=== PATIENT | female | born 1980 | race Caucasian/White ===

== ENCOUNTER 2017-03-16 13:23 | Inpatient (IN) | payer SELFPAY ==
[~2017-03-16] VITALS: Ht 165.1 cm; Wt 85.4 kg
--- NOTE | 2017-03-16 13:33 | NUR ---
PT SENT TO LOBBY TO WAIT FOR AVAILABLE BED. VITALS STABLE AND NO DISTRESS NOTED
--- NOTE | 2017-03-16 15:36 | NUR ---
DR. DILL PERFORMED MSE; PT IN ED WITH C/O GENERALIZED ABD PAIN AND GAS PAINS X4 DAYS, PER PT STARTED ON CLINDAMYCIN 4 DAYS AGO FOR A DENTAL INFECTION AND REPORTS NOW HAVING GAS PAINS AND ALL OVER "BONE PAIN", PER PT SHE STOPPED TAKING THE CLINDA DUE TO SIDE EFFECTS; PT HAS HX OF GASTRIC BYPASS AND REPORTS FREQUENT ISSUES WITH GAS BUT REPORTS THEY USUALLY SUBSIDE WITHIN A FEW HOURS, PT IS ANXIOUS, AAO4, NO ACUTE DISTRESS
[2017-03-16 15:52] LABS: microscopic required? YES; urine erythrocyte 2+ (NEGATIVE)
[2017-03-16 15:53] LABS: BASOPHIL % 0.2 % (0-2); PLATELET COUNT 227 x10^3mcL (130-400); RED CELL DISTRIBUTION WIDTH 12.6 % (11.5-14.5)
--- NOTE | 2017-03-16 15:59 | NUR ---
PT REFUSED ATIVAN AND ZOFRAN; PT IS ANXIOUS AND REPORTS READING A LOT ON THE INTERNET ABOUT CLINDAMYCIN, PT VOICES CONCERN ABOUT HAVING CANCER AND STARTS CRYING, ASKED PT WHY SHE THINKS SHE HAS CANCER AND STATES THAT HER MOM HAD LEUKEMIA; ENCOURAGED PT TO WAIT FOR RESULTS OF TESTING AND NOT THINK ABOUT THE WORST POSSIBLE OUTCOMES
[2017-03-16 16:01] LABS: CALCIUM 8.5 mg/dL (8.5-10.1); CARBON DIOXIDE 27.4 mmol/L (21-32); CHLORIDE SERUM 105 mmol/L (98-107); CREATININE SERUM 0.7 mg/dL (0.6-1.0); GFR1 > 60 mL/min; GLUCOSE SERUM 102 mg/dL (74-106); SODIUM SERUM 143 mmol/L (136-145)
[2017-03-16 16:05] LABS: ALBUMIN 3.5 g/dL (3.4-5.0); ALKALINE PHOSPHATASE 89 U/L (46-116); ALT/SGPT 48 U/L (14-59); AMYLASE 70 U/L (25-115); AST/SGOT 42 U/L (15-37); BILIRUBIN TOTAL 0.68 mg/dL (0.20-1.00); LIPASE 127 IU/L (73-393)
--- NOTE | 2017-03-16 17:54 | NUR ---
PT OFF UNIT TO CT
--- NOTE | 2017-03-16 19:12 | NUR ---
REPORT TO NICOLLE AGUILERA TO ASSUME CARE OF PT
--- NOTE | 2017-03-16 19:35 | NUR ---
REPORT GIVEN TO AMBER AGUILERA.
[2017-03-16 19:42] LABS: CHOLESTEROL/HDL RATIO 1.9
[2017-03-16 19:44] LABS: T3 TOTAL 0.99 ng/mL
[2017-03-16 19:47] LABS: FREE T4 1.23 ng/dL (0.76-1.46); FREE THYROXINE INDEX 2.9 ug/dL (1.4-4.5); T4(THYROXINE) 8.6 ug/dL (4.7-13.3)
[2017-03-16 20:20] VITALS: BP 142/82
--- NOTE | 2017-03-16 20:23 | NUR ---
RECEIVED PT FROM ED VIA NING. ORIENTED PT TO ROOM AND SURROUNDINGS. IV NOTED TO RAC PATENT AND INTACT. TELE 5 PLACED ON PT READING NSR. INSTRUCTED PT ON THE USE OF CALL LIGHT FOR ASSISTANCE. [facility]
[2017-03-16 20:25] VITALS: BP 142/82
--- NOTE | 2017-03-16 20:25 | NUR ---
RECEIVED REPORT FROM ED AND RESOURCE RN SURU. PATIENT C/O 03/15 ABD PAIN. MEDICATED WITH MORPHINE IVP PER DOCTOR'S PRN ORDER. BED IN LOWEST POSITION. CALL LIGHT WITHIN REACH. WILL CONTINUE TO MONITOR.
--- NOTE | 2017-03-16 22:14 | NUR ---
PER DR VILLALPANDO PATIENT WOULD LIKE TO TALK TO SURGEON IN THE MORNING BEFORE SIGNING CONSENT.
--- NOTE | 2017-03-17 00:08 | NUR ---
PATIENT CALLED STATING SHE FELT ITCHY, MOUTH WAS DRY, THROAT WAS SWELLING UP AND SHE COULDN'T BREATHE. IVPB ZOSYN WAS PUT ON HOLD. NOTICED SOME FACIAL REDNESS. NOTIFIED DR VILLALPANDO AND CHARGE NURSE JAY. PATIENT WAS PUT ON 2L O2 VIA NASAL CANNULA. PATIENT WAS ABLE TO CONTINUE TO SPEAK IN FULL SENTENCES. BENADRYL, CLARITAN, SOLUMEDEROL, AND PEPCID GIVEN PER DOCTOR'S ORDER. PATIENT DENIES SOB AT THIS TIME. NO DISTRESS NOTED. WILL CONITNUE TO MONITOR.
--- NOTE | 2017-03-17 00:45 | NUR ---
PATIENT REQUESTED PAIN MEDICATION. AT THIS TIME WENT INTO THE ROOM AND PATIENT IS SLEEPING WITH NO C/O PAIN. WILL MEDICATE AT A LATER TIME WHEN PATIENT REQUESTS AGAIN.
--- NOTE | 2017-03-17 00:55 | NUR ---
PATIENT FOUND LAYING IN OTHER BED. LET PATIENT'S KNOW PER POLICY HE IS NOT ABLE TO SLEEP IN THE BED. PATIENT THEN STATED "WHATS WRONG WITH HIM LAYING THERE JUST CHARGE IT TO OUR ROOM SERVICE". PATIENT'S DID GET OFF THE BED AFTERWARDS. NOTIFIED CHARGE NURSE.
--- NOTE | 2017-03-17 01:10 | NUR ---
RECLINER CHAIR WAS PROVIDED TO PATIENT'S .
--- NOTE | 2017-03-17 05:06 | NUR ---
PATIENT RESTED IN INTERVALS THROUGHOUT THE NIGHT. MEDICATED FOR PAIN WITH TORADOL IVP X 3, MORPHINE IVP X 1, AND DILAUDID IVP X 1 PER DOCTOR'S PRN ORDER. PAIN MANAGED THROUGHOUT THE NIGHT. SAFETY AND COMFORT MEASURES MAINTAINED. BED IN LOWEST POSITION. CALL LIGHT WITHIN REACH. WILL CONTINUE TO MONITOR AND ENDORSE TO NEXT SHIFT NURSE.
[2017-03-17 05:31] VITALS: BP 140/68
[2017-03-17 06:22] LABS: CALCIUM 8.2 mg/dL (8.5-10.1); CARBON DIOXIDE 26.4 mmol/L (21-32); CHLORIDE SERUM 107 mmol/L (98-107); CREATININE SERUM 0.7 mg/dL (0.6-1.0); GFR1 > 60 mL/min; GLUCOSE SERUM 168 mg/dL (74-106); POTASSIUM SERUM 4.6 mmol/L (3.5-5.1); SODIUM SERUM 143 mmol/L (136-145)
[2017-03-17 06:26] LABS: PLATELET COUNT 203 x10^3mcL (130-400); RED CELL DISTRIBUTION WIDTH 12.4 % (11.5-14.5)
[2017-03-17 06:36] LABS: BASOPHIL % 0 % (0-2)
--- NOTE | 2017-03-17 07:10 | NUR ---
RECEIVED REPORT FROM CRISTI AGUILERA BLAST FURNACE BLOWER AT BEDSIDE. PT ANXIOUS RE:SURGERY. PT NPO FOR POSSIBLE SURGERY. TEMP 98.4. TELE #5 SINUS RHYTHM. RESP 18 EVEN. BREATH SOUNDS CLEAR. NO COUGH OR SOB. PULSE OX 97% RA. ABD ROUNDED BUT SOFT, BOWEL TONES PRESENT. DENIES PAIN AT THIS TIME. LAST MED WITH TORADOL 30MG IVP AT 0455 WITH GOOD EFFECT. VOIDING QS. NO EDEMA, PULSES PRESENT. SCD IN PLACE. IV PATENT RAC INFUSING NORMAL SALINE 100CC/HR. SIDE RAILS UP X2, CALL LIGHT IN REACH. DR LAYNE IN TO SPEAK WITH PT AND . DISCUSSED SURGERY FOR LAPAROSCOPIC CHOLECYSTECTOMY. PT HAS HX OF GASTRIC BYPASS IN 2014. DISCUSSED IF UNABLE TO PERFORM LAPAROSCOPICALLY THEN WILL NEED TO OPEN FOR SURGERY. PT VERBALIZED UNDERSTANDING. QUESTIONS ANSWERED. PT IN AGREEMENT FOR SURGERY. ALLERGY BAND PLACED FOR ZOSYN AND CLINDAMYCIN.
--- NOTE | 2017-03-17 07:50 | NUR ---
AT BEDSIDE. PT ANXIOUS RE:SURGERY BUT AGREEABLE TO PROCEED WITH SURGERY AT THIS TIME. UP TO BATHROOM FOR ALAN WIPE. IV CONVERTED TO SALINE LOCK. PT ABLE TO AMBULATE TO [facility]. [place] IDENTIFIED. PT TEARFUL AND ANXIOUS. PT TAKEN DOWN TO SURGERY AT THIS TIME.
[2017-03-17 10:50] VITALS: BP 104/58
--- NOTE | 2017-03-17 10:50 | NUR ---
RECEIVED PT BACK FROM SURGERY VIA GURNEY. ABLE TO SLIDE OVER TO BED INDEPENDANTLY. MOVES WELL. DENIES PAIN. STATES "FEELS GOOD." TELE MONITOR IN PLACE SINUS RHYTHM. RESP UNLABORED. PULSE OX 94%. OXYGEN 2L NC IN PLACE. ABD SOFT, DERMABOND IN PLACE TO 4 INCISIONS. NO DRAINAGE NOTED. HAS NOT VOIDED. INSTRUCTED TO CALL NURSE WHEN NEEDS TO GET OOB. VERBALIZED UNDERSTANDING. IVF RESUMED NORMAL SALINE 100CC/HR. ICE CHIPS PROVIDED. TO HAVE CLEAR LIQ LUNCH. AT BEDSIDE. SIDE RAILS UP X2. CALL LIGHT IN REACH.
--- NOTE | 2017-03-17 12:45 | NUR ---
PT AWAKE AND ALERT. SITTING ON SIDE OF BED. STATES "FEELS FINE." DENIES PAIN. STARTED ON CLEAR LIQUID DIET. TOLERATES WELL. NO C/O NAUSEA. IV CONTINUES PATENT. HAS NOT VOIDED YET. OFFERS NO NEED TO GO TO BATHROOM. INSTRUCTED TO CALL FOR ASSISTANCE.
[2017-03-17 13:26] VITALS: BP 97/60
--- NOTE | 2017-03-17 14:45 | NUR ---
PT AWAKE. REPORTS "STARTING TO HAVE A LITTLE BURNING ON MY INCISION ON THE RIGHT SIDE. CAN I HAVE SOME PAIN MEDICINE?" MED WITH TORADOL 30MG IV ORDERED.
--- NOTE | 2017-03-17 15:10 | NUR ---
REPORTS "FEELING BETTER, PAIN DOWN TO 6/10." DENIES THROAT SWELLING, HIVES OR ITCHING FROM MEDICATION. INSTRUCTED WITH USE OF INCENTIVE SPIROMETER TO USE HOURLY TEN BREATHS. GOOD RETURN DEMO. CALL LIGHT IN REACH.
[2017-03-17 17:05] VITALS: BP 97/60
--- NOTE | 2017-03-17 17:30 | NUR ---
PT REPORTS "IS PASSING GAS, NO BM YET." AMBULATES WELL TO BATHROOM. VOIDING QS. DENIES PAIN AT THIS TIME. DIET ADVANCED TO REGULAR. TOLERATES WELL. NO C/O NAUSEA. AT BEDSIDE. CALL LIGHT IN REACH.
--- NOTE | 2017-03-17 19:30 | NUR ---
PT ALERT/ORIENTED X4. NO C/O PAIN. 4 SURG WOUNDS NOTED TO ABD WITH DERMABOND, PT IS S/P LAP JESÚS TODAY. TELE # 5, SR, HR; 5. PT SPOUSE IN ROOM. PT ASSESSED; SEE NSG FLOWSHEET. SAFETY REINFORCED; SEE NSG FLOWSHEET. WILL CONTINUE TO MONITOR.
[2017-03-17 20:35] VITALS: BP 98/63
--- NOTE | 2017-03-17 21:28 | NUR ---
PT C/O RT BACK PAIN. RATES THE PAIN AT A 5/10. MEDICATED WITH TORADOL 30 MG IVP. WILL CONTINUE TO MONITOR.
--- NOTE | 2017-03-17 22:05 | NUR ---
PT C/O RT BACK PAIN. PT REQUESTING MORE TORADOL. SPOKE WITH DR BRUMFIELD WHO STATED TO GIVE THE NORCO AND NO EXTRA TORADOL ORDERED. WILL MEDICATE WITH THE NORCO. PT STATES RT BACK PAIN IS 6/10.
--- NOTE | 2017-03-17 22:28 | NUR ---
PT REFUSING THE NORCO AT THIS TIME. PT REFUSING MORPHINE SULFATE. PT REFUSING PAIN MEDS AT THIS TIME. PT STATES PAIN IS NOW A 5/10. WILL CONTINUE TO MONITOR.
--- NOTE | 2017-03-17 23:25 | NUR ---
PT SLEEPING. NO DISTRESS NOTED. WILL CONTINUE TO MONITOR.
--- NOTE | 2017-03-18 02:00 | NUR ---
PT SLEEPING. NO DISTRESS NOTED. WILL CONTINUE TO MONITOR.
--- NOTE | 2017-03-18 05:26 | NUR ---
PT SLEPT IN LONG INTERVALS THROUGHOUT THE NIGHT. MEDICATED FOR RT BACK PAIN 3X'S DURING SHIFT (SEE EMAR). WILL CONTINUE TO MONITOR.
[2017-03-18 05:33] VITALS: BP 100/49
[2017-03-18] MEDS ORDERED: APAP/HYDROCODON1 T13 PO (05:50)
--- NOTE | 2017-03-18 06:14 | NUR ---
PT IN RESTROOM BLOW DRYING HER HAIR. PT STATED WASHED IT BECAUSE IT WAS DIRTY.
[2017-03-18 06:21] VITALS: BP 106/67
--- NOTE | 2017-03-18 06:31 | NUR ---
PT REQUESTING MED FOR A BM. PT STATES DOES NOT WANT COLACE AND STATED SHE WANTED "SOMETHING STRONGER". NOTIFIED DR BRUMFIELD OF THE PT REQUEST THROUGH [facility].
--- NOTE | 2017-03-18 06:43 | NUR ---
PT TOOK OFF TELE MONITOR. STATES DOES NOT NEED IT. INFORMED PT OF THE IMPORTANCE OF THE TELE MONITOR, PT STILL REFUSED. CHARGE NURSE CHAGO CUI. INFORMED DR BRUMFIELD THROUGH [facility]. WILL CONTINUE TO MONITOR.
[2017-03-18 06:54] LABS: BASOPHIL % 0.2 % (0-2); PLATELET COUNT 198 x10^3mcL (130-400); RED CELL DISTRIBUTION WIDTH 12.4 % (11.5-14.5)
--- NOTE | 2017-03-18 07:15 | NUR ---
RECEIVED PT IN BED, A/A/O X 4, ABLE TO MAKE NEEDS KNOWN. CHEST RISING EVENLY, NO RESPIRATORY DISTRESS NOTED. CURRENT VS 98.2F, 102/60 (77), 74, 98% R/A, 18. 0/10. ABD ROUND, SOFT, NON-TENDER. BOWEL SOUNDS ARE NORMOACTIVE X 4 QUADS. NOTED 4 SX WOUNDS ON ABD, COVERED WITH DERMABOND. C/O CONSTIPATION SINCE 03/15/17, NO PAIN OR DISCOMFORT. PT ON COLACE AND SENNA. IV SITE @ [facility], RUNNING NS @ 100 ML/HR. CALL LIGHT WITHIN REACH, BED IN LOW POSITION, SIDE RAILS UP X 2. WILL CONTINUE TO MONITOR.
[2017-03-18 07:27] VITALS: BP 102/60
--- NOTE | 2017-03-18 08:39 | NUR ---
PT GIVEN HER IVP AND PO MEDS; NO S/S DYSPHAGIA. WILL CONTINUE TO MONITOR.
--- NOTE | 2017-03-18 08:45 | NUR ---
DR MAURICE, RESIDENTS, CHARGE NURSE, AND ASSIGNED NURSE CAME IN TO SEE PT; DISCUSSED PLAN FOR PT TO BE D/C HOME TODAY. ALL OTHER QUESTIONS ANSWERED.
[2017-03-18 09:02] VITALS: BP 106/64
[2017-03-18] MEDS ORDERED: GAS RELIEF80 MG PO (10:23)
[2017-03-18 10:58] VITALS: BP 102/60
--- NOTE | 2017-03-18 11:50 | NUR ---
PT STATED THAT SHE HAS PAIN 7/10 ON HER BACK; WAS GIVEN NORCO 5/325 1 TAB PO. WILL CONTINUE TO MONITOR.
--- NOTE | 2017-03-18 12:37 | NUR ---
PT WAS GIVEN DISCHARGE PAPERS AND PERSONAL BELONGINGS SHEET; EXPLAINED RECENT STAY HERE AT [facility], AND GIVEN EDUCATION ON CHOLELITHIASIS, CHOLECYSTECTOMY, AND APPROPRIATE DIET AFTER THE SAID PROCEDURE. PT VERBALIZED UNDERSTANDING. PT'S BY BEDSIDE. ALL QUESTIONS WERE ANSWERED. IV CATH 20G 1.25" REMOVED FROM RAC, NO BLEEDING, REDNESS, OR PAIN. APPLIED PRESSURE TO PREVENT BLEEDING, THEN COVERED WITH DRY DRESSING AND SECURED WITH TAPE AFTERWARDS. ALL NAME / ALLERGY BANDS WERE REMOVED. PT STATED THAT SHE DOES NOT NEED A W/C TO GO OUT OF THE UNIT. ACCOMPANIED BOTH PT AND HER TO THE MAIN LOBBY; PT WILL BE GOING HOME VIA PRIVATE VEHICLE. NO RESPIRATORY DISTRESS, PAIN, OR DISCOMFORT. GAIT AND BALANCE UNIMPAIRED.
== END 2017-03-18 12:35 | disposition home or self-care (01) | DRG 854 ==
LOC: ED 13:23 → DU 18:49
PROVIDERS: Emergency Medicine; Surgery; ADMIT Family Medicine
PROC: 0FT44ZZ Resection of Gallbladder, Percutaneous Endoscopic Approach (ICD-10-PCS; principal; 2017-03-17 08:00)
DX: A41.9 Sepsis, unspecified organism (principal); K80.00 Calculus of gallbladder with acute cholecystitis without obstruction; E66.9 Obesity, unspecified; T50.995A Adverse effect of other drugs, medicaments and biological substances, initial encounter; Z98.84 Bariatric surgery status; Z98.82 Breast implant status; Z88.1 Allergy status to other antibiotic agents; Z88.8 Allergy status to other drugs, medicaments and biological substances; Z80.6 Family history of leukemia; Z68.32 Body mass index [BMI] 32.0-32.9, adult; Y92.89 Other specified places as the place of occurrence of the external cause
CPT/HCPCS: 83880; 84439; 94150; C9113; J0696; J1170; J1885; J2175; J2250; J2270; J2405; J2543; J2930; J3010; J3490; J7030; Q0092; Q0163